=== PATIENT | female | born 1990 | race Caucasian/White ===

== ENCOUNTER 2016-12-16 13:23 | Emergency (ER) | payer BC, MEDICAID ==
--- NOTE | 2016-12-16 14:23 | EKG REPORT ---
SEVERITY:- ABNORMAL ECG - SINUS TACHYCARDIA PROBABLE LEFT ATRIAL ABNORMALITY INCOMPLETE RIGHT BUNDLE BRANCH BLOCK INFERIOR Q WAVES, PROBABLY NORMAL VARIATION : Confirmed by: Ramos Villegas 16-Dec-2016 14:22:34
[2016-12-16] MEDS ORDERED: LORAZEPAM INJ 2 MG/1 ML VIAL IV ONE ×2 (14:38→16:41)
--- NOTE | 2016-12-16 14:39 | ER Document Report ---
ED Medical Screen (RME) - General Time seen by provider: 14:30 Mode of Arrival: Ambulatory Information source: Patient TRAVEL OUTSIDE OF THE [place] IN LAST 30 DAYS: No <VALENTINO MATHEWS - Last Filed: 12/16/16 14:53> <TRESSA WOODS - Last Filed: 12/20/16 02:49> - General Chief Complaint: Shortness Of Breath Stated Complaint: RIGHT ARM PAIN,FAST PULSE,NAUSEA Notes: Patient is a 26-year-old female presenting to the emergency department for numbness and tingling to her right upper extremity and chest heaviness. Patient states that she had 2 days of tingling and numbness to her right arm. Patient ate lunch normally had work today, walked in and sat at her desk. Patient states she lifted her right arm to the mouth and had an intense substernal pain in her arm and chest. Patient still complains of some chest heaviness and tingling also in her fingers. Patient denies any history of blood clots. Patient is taking Chantix. Patient states her last normal menstrual period was in September and there is a chance that she could be . (VALENTINO MATHEWS) - Related Data Allergies/Adverse Reactions: No Known Allergies Allergy (Verified 12/16/16 13:29) Past Medical History Renal/ Medical History: Denies: Hx Peritoneal Dialysis Psychiatric Medical History: Reports: Hx Depression - Immunizations Hx Diphtheria, Pertussis, Tetanus Vaccination: Yes <VALENTINO MATHEWS - Last Filed: 12/16/16 14:53> Course <VALENTINO MATHEWS - Last Filed: 12/16/16 14:53> - Laboratory Result Diagrams: 12/16/16 15:08 12/16/16 15:08 <TRESSA WOODS - Last Filed: 12/20/16 02:49> - Re-evaluation Re-evalutation: 12/20/16 02:48 the patient presents with a more permanent chest wall pain. says it hurts when she moves. 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 she has no shortness of breath dyspnea on exertion chest pain or pressure no pain radiating to the back of nausea vomiting up down pain diary shows a change in appetite she found she did anxious about the chest wall pain she starts getting tingling in her arm in a headache blurred vision television stroke like symptoms and normal neurological examination. patient has negative cardiac workup no clinical concerns for cva and my are unstable angina. at this time. should a bonny scales chest wall pain valium close to three-day fall primary care physician and discuss reasons for you to return sooner 12/20/16 02:49 (TRESSA WOODS) - Vital Signs Vital signs: Temp Pulse Resp BP Pulse Ox 98.7 F 99 16 135/88 H 98 12/16/16 13:29 12/16/16 19:47 12/16/16 19:47 12/16/16 19:47 12/16/16 19:47 - EKG Interpretation by Me Additional EKG results interpreted by me: 12/16/16 14:39 EKG interpreted by myself to reveal sinus tachycardia 113 bpm with an incomplete right bundle branch block inferior Q waves no ST segment elevation ( TRESSA WOODS) Doctor's Discharge <VALENTINO MATHEWS - Last Filed: 12/16/16 14:53> <TRESSA WOODS - Last Filed: 12/20/16 02:49> - Discharge Clinical Impression: Anxiety, Arm paresthesia, right, Trapezius muscle spasm Dyspnea Qualifiers: Dyspnea type: unspecified Qualified Code(s): R06.00 - Dyspnea, unspecified Condition: Stable Disposition: HOME, SELF-CARE Instructions: Anxiety ([facility]), Benzodiazepines ([facility]), Dyspnea, Nonspecific ([facility]) Additional Instructions: Return immediately for any new or worsening symptoms Followup with your primary care provider, call tomorrow to make a followup appointment Follow up with development team lead for further evaluation Prescriptions: Diazepam [Valium 5 mg Tablet] 5 mg PO TID PRN #12 tablet PRN Reason: Ondansetron HCl [Zofran 4 mg Tablet] 1 - 2 tab PO Q6 PRN #15 tablet PRN Reason: Forms: Return to Work Referrals: RON GOMEZ MD [ACTIVE STAFF] - Follow up tomorrow LAKISHA ADAME NP [Primary Care Provider] - Follow up tomorrow Scribe Documentation - Scribe Written by Scribe:: Valentino Mathews 12/16/16 14:55 acting as scribe for :: Brock <VALENTINO MATHEWS - Last Filed: 12/16/16 14:53>
[2016-12-16 15:26] LABS: APPEARANCE,URINE CLEAR; BILIRUBIN,URINE NEGATIVE (NEGATIVE); GLUCOSE, URINE NEGATIVE (NEGATIVE); KETONES,URINE NEGATIVE (NEGATIVE); LEUKOCYTE ESTERASE,URINE NEGATIVE (NEGATIVE); NITRITE,URINE NEGATIVE (NEGATIVE); PROTEIN,URINE NEGATIVE (NEGATIVE); URINE SPECIFIC GRAVITY 1.005; UROBILINOGEN,URINE NEGATIVE mg/dL (<2.0)
[2016-12-16 15:31] LABS: ABSOLUTE EOSINOPHILS # (AUTO) 0.4 10^3/uL (0.0-0.6); ABSOLUTE LYMPHOCYTES (AUTO) 2.1 10^3/uL (0.5-4.7); ABSOLUTE MONOCYTES (AUTO) 0.8 10^3/uL (0.1-1.4); ABSOLUTE NEUT (AUTO) 4.6 10^3/uL (1.7-8.2); BASOPHILS % (AUTO) 0.6 % (0-2); EOSINOPHILS % (AUTO) 4.5 % (0-6); HEMATOCRIT 44.2 % (36.0-47.0); HGB HCT DIFFERENCE 0.8; MEAN CORPUSCULAR HEMOGLOBIN 31.2 pg (27.0-33.4); MEAN CORPUSCULAR VOLUME 92 fl (80-97); MONOCYTES % (AUTO) 10.2 % (3-13); RED BLOOD COUNT 4.82 10^6/uL (3.72-5.28); RED CELL DISTRIBUTION WIDTH 13.4 % (11.5-14.0); SEGMENTED NEUTROPHILS % (AUTO) 58.7 % (42-78); WHITE BLOOD COUNT 7.9 10^3/uL (4.0-10.5)
[2016-12-16 15:45] LABS: ANION GAP 15 (5-19); BLOOD UREA NITROGEN 10 mg/dL (7-20); CALCIUM 10.1 mg/dL (8.4-10.2); CARBON DIOXIDE 27 mmol/L (22-30); CHLORIDE 102 mmol/L (98-107); CREATININE RESULT 0.72 mg/dL (0.52-1.25); GLUCOSE 101 mg/dL (75-110); SODIUM 144.3 mmol/L (137-145)
[2016-12-16] MEDS ORDERED: ONDANSETRON HCL INJ/PF 4 MG/2 ML SDV IV ONE (16:36)
[2016-12-16] MEDS ORDERED: NORMAL SALINE 1000 ML 1,000 ML IV ONE (16:36)
[2016-12-16] MEDS ORDERED: DIAZEPAM 5 MG TABLET PO ONE (16:53)
--- NOTE | 2016-12-16 18:17 | ER Document Report ---
ED Respiratory Problem - General Chief Complaint: Shortness Of Breath Stated Complaint: RIGHT ARM PAIN,FAST PULSE,NAUSEA Mode of Arrival: Ambulatory Information source: Patient Notes: Patient presents complaining of right arm pain with tingling to her fingers and shortness of breath for the past 2 days. Patient complains of a pressure in her chest with some nausea. Patient does report some mild cold symptoms. No vomiting. Patient states she has a family history of heart attack that she might be having a heart attack as well. TRAVEL OUTSIDE OF THE [place] IN LAST 30 DAYS: No - HPI Patient complains to provider of: Short of breath Onset: Yesterday Duration: Continuous Pain Level: 4 Context: Smoker. denies: Hx asthma, Recent cardiac event, Recent immobilization , Recent surgery Cough: Nonproductive Associated symptoms: Anxiety, Short of breath, Tingling hands - Right hand. denies: Bloody cough, Fever Similar symptoms previously: No Recently seen / treated by doctor: No - Related Data Allergies/Adverse Reactions: No Known Allergies Allergy (Verified 12/16/16 13:29) Past Medical History - General Information source: Patient - Social History Smoking Status: Current Every Day Smoker Chew tobacco use (# tins/day): No Frequency of alcohol use: None Drug Abuse: None Occupation: [employer] Lives with: Family Family History: Reviewed & Not Pertinent Patient has suicidal ideation: No Patient has homicidal ideation: No Neurological Medical History: Reports: Other - Headache Renal/ Medical History: Denies: Hx Peritoneal Dialysis Psychiatric Medical History: Reports: Hx Depression Surgical Hx: Negative - Immunizations Hx Diphtheria, Pertussis, Tetanus Vaccination: Yes Review of Systems - Review of Systems Constitutional: Recent illness - Upper respiratory symptoms. denies: Fever EENT: No symptoms reported Cardiovascular: Palpitations, Orthopnea. denies: Chest pain Respiratory: Short of breath Gastrointestinal: Nausea. denies: Abdominal pain, Vomiting Genitourinary: No symptoms reported Female Genitourinary: No symptoms reported Musculoskeletal: No symptoms reported. denies: Back pain, Neck pain Skin: No symptoms reported Hematologic/Lymphatic: No symptoms reported Neurological/Psychological: No symptoms reported Physical Exam - Vital signs Vitals: Temp Pulse Resp BP Pulse Ox 98.7 F 111 H 18 156/94 H 100 12/16/16 13:29 12/16/16 13:29 12/16/16 13:29 12/16/16 13:29 12/16/16 13:29 - General General appearance: Alert, Anxious In distress: None - HEENT Head: Normocephalic, Atraumatic Eyes: Normal Conjunctiva: Normal Nasal: Normal Mouth/Lips: Normal Mucous membranes: Normal Pharynx: Normal Neck: Normal, Supple. No: Lymphadenopathy - Respiratory Respiratory status: No respiratory distress Chest status: Nontender Breath sounds: Normal Chest palpation: Normal - Cardiovascular Rhythm: Tachycardia Heart sounds: S1 appreciated, S2 appreciated Murmur: No Pulses: Normal: Radial - Abdominal Inspection: Normal Distension: No distension Bowel sounds: Normal Tenderness: Nontender Organomegaly: No organomegaly - Back Back: Tender - Right trapezius muscle spasm with tenderness at right occipital condyle - Extremities General upper extremity: Normal inspection, Tender - Right upper extremity, Normal color, Normal ROM, Normal strength, Normal temperature. No: Edema General lower extremity: Normal inspection, Normal ROM - Neurological Neuro grossly intact: Yes Cognition: Normal Jay Coma Scale Eye Opening: Spontaneous Jay Coma Scale Verbal: Oriented Jay Coma Scale Motor: Obeys Commands Jay Coma Scale Total: 15 - Psychological Associated symptoms: Anxious, Tearful - Skin Skin Temperature: Warm Skin Moisture: Dry Skin Color: Normal Course - Vital Signs Vital signs: Temp Pulse Resp BP Pulse Ox 98.7 F 111 H 18 156/94 H 100 12/16/16 13:29 12/16/16 13:29 12/16/16 13:29 12/16/16 13:29 12/16/16 13:29 - Laboratory Result Diagrams: 12/16/16 15:08 12/16/16 15:08 Laboratory results interpreted by me: Labs- Entire Visit 12/16/16 12/16/16 12/16/16 14:51 15:08 15:08 WBC 7.9 RBC 4.82 Hgb 15.0 Hct 44.2 MCV 92 MCH 31.2 MCHC 34.0 RDW 13.4 Plt Count 288 Seg Neutrophils % 58.7 Lymphocytes % 26.0 Monocytes % 10.2 Eosinophils % 4.5 Basophils % 0.6 Absolute Neutrophils 4.6 Absolute Lymphocytes 2.1 Absolute Monocytes 0.8 Absolute Eosinophils 0.4 Absolute Basophils 0.0 Sodium 144.3 Potassium 4.0 Chloride 102 Carbon Dioxide 27 Anion Gap 15 BUN 10 Creatinine 0.72 Est GFR ( Amer) > 60 Est GFR (Non-Af Amer) > 60 Glucose 101 Calcium 10.1 Troponin I TSH Urine Color YELLOW Urine Appearance CLEAR Urine pH 9.0 Ur Specific [place] 1.005 Urine Protein NEGATIVE Urine Glucose (UA) NEGATIVE Urine Ketones NEGATIVE Urine Blood NEGATIVE Urine Nitrite NEGATIVE Urine Bilirubin NEGATIVE Urine Urobilinogen NEGATIVE Ur Leukocyte Esterase NEGATIVE Urine WBC (Auto) 1 Urine RBC (Auto) 2 Squamous Epi Cells Auto 1 Urine Mucus (Auto) RARE Urine Ascorbic Acid NEGATIVE 12/16/16 12/16/16 15:08 15:08 WBC RBC Hgb Hct MCV MCH MCHC RDW Plt Count Seg Neutrophils % Lymphocytes % Monocytes % Eosinophils % Basophils % Absolute Neutrophils Absolute Lymphocytes Absolute Monocytes Absolute Eosinophils Absolute Basophils Sodium Potassium Chloride Carbon Dioxide Anion Gap BUN Creatinine Est GFR ( Amer) Est GFR (Non-Af Amer) Glucose Calcium Troponin I < 0.012 TSH 1.57 Urine Color Urine Appearance Urine pH Ur Specific [place] Urine Protein Urine Glucose (UA) Urine Ketones Urine Blood Urine Nitrite Urine Bilirubin Urine Urobilinogen Ur Leukocyte Esterase Urine WBC (Auto) Urine RBC (Auto) Squamous Epi Cells Auto Urine Mucus (Auto) Urine Ascorbic Acid 12/16/16 19:39 - Diagnostic Test Radiology reviewed: Reports reviewed Discharge - Discharge Clinical Impression: Anxiety, Arm paresthesia, right, Trapezius muscle spasm Dyspnea Qualifiers: Dyspnea type: unspecified Qualified Code(s): R06.00 - Dyspnea, unspecified Condition: Stable Disposition: HOME, SELF-CARE Instructions: Dyspnea, Nonspecific ([facility]), Anxiety ([facility]), Benzodiazepines ([facility]) Additional Instructions: Return immediately for any new or worsening symptoms Followup with your primary care provider, call tomorrow to make a followup appointment Follow up with manager it training for further evaluation Prescriptions: Diazepam [Valium 5 mg Tablet] 5 mg PO TID PRN #12 tablet PRN Reason: Ondansetron HCl [Zofran 4 mg Tablet] 1 - 2 tab PO Q6 PRN #15 tablet PRN Reason: Forms: Return to Work Referrals: LAKISHA ADAME NP [Primary Care Provider] - Follow up tomorrow RON GOMEZ MD [ACTIVE STAFF] - Follow up tomorrow
[2016-12-16 19:54] VITALS: BP 135/88
--- NOTE | 2016-12-17 09:39 | EKG REPORT ---
SEVERITY:- ABNORMAL ECG - SINUS RHYTHM NONSPECIFIC INTRAVENTRICULAR CONDUCTION DELAY : Confirmed by: Ramos Villegas 17-Dec-2016 09:38:43
== END 2016-12-16 19:47 | disposition home or self-care (01) ==
LOC: ER 13:23
DX: R06.00 Dyspnea, unspecified (principal); F41.9 Anxiety disorder, unspecified; R20.0 Anesthesia of skin; M62.838 Other muscle spasm; R06.02 Shortness of breath; M79.601 Pain in right arm; R11.0 Nausea; R00.2 Palpitations; F17.200 Nicotine dependence, unspecified, uncomplicated
CPT/HCPCS: 93005; 99285; 96361; 96374; 96375; 36415; 84443; 85025; 80048; 81001; 84484; 71275; 93010; J2060; J2405; J7030

== ENCOUNTER 2017-06-20 21:49 | Emergency (ER) | payer BC ==
[2017-06-20 22:15] VITALS: BP 129/83
== END 2017-06-21 01:05 | disposition left against medical advice (07) ==
LOC: ER 21:49
DX: Z53.21 Procedure and treatment not carried out due to patient leaving prior to being seen by health care provider (principal)

== ENCOUNTER 2017-08-02 11:30 | Emergency (ER) | payer BC ==
[2017-08-02] MEDS ORDERED: ONDANSETRON 4 MG TAB.RAPDIS PO ONE (11:56)
--- NOTE | 2017-08-02 11:56 | ER Document Report ---
ED Medical Screen (RME) - General Chief Complaint: Abdominal Pain Stated Complaint: ABDOMINAL PAIN Time Seen by Provider: 08/02/17 11:49 Notes: 27-year-old female patient reports onset 9 PM last night of "felt like my body is septic or toxic". Had dry heaves this morning and black bowel movements. States "feels like my body is going to shut down". Currently being treated for "an ulcer on the side of my pancreas". That ulcer is being treated with Carafate and Prevacid. She denies taking anything like Pepto-Bismol that could change the character of her bowel movements. I have greeted and performed a rapid initial assessment of this patient. A comprehensive ED assessment and evaluation of the patient, analysis of test results and completion of the medical decision making process will be conducted by additional ED providers. TRAVEL OUTSIDE OF THE [place] IN LAST 30 DAYS: No - Related Data Allergies/Adverse Reactions: No Known Allergies Allergy (Verified 08/02/17 11:49) Past Medical History - Social History Chew tobacco use (# tins/day): No Frequency of alcohol use: None Drug Abuse: None Renal/ Medical History: Denies: Hx Peritoneal Dialysis Psychiatric Medical History: Reports: Hx Depression - Immunizations Hx Diphtheria, Pertussis, Tetanus Vaccination: Yes Physical Exam - Vital signs Vitals: Temp Pulse Resp BP Pulse Ox 98.6 F 95 16 132/89 H 100 08/02/17 11:42 08/02/17 11:42 08/02/17 11:42 08/02/17 11:42 08/02/17 11:42 Course - Vital Signs Vital signs: Temp Pulse Resp BP Pulse Ox 98.6 F 95 16 132/89 H 100 08/02/17 11:42 08/02/17 11:42 08/02/17 11:42 08/02/17 11:42 08/02/17 11:42
[2017-08-02 12:23] LABS: ABSOLUTE BASOPHILS # (AUTO) 0.1 10^3/uL (0.0-0.2); ABSOLUTE EOSINOPHILS # (AUTO) 0.5 10^3/uL (0.0-0.6); ABSOLUTE LYMPHOCYTES (AUTO) 2.1 10^3/uL (0.5-4.7); ABSOLUTE MONOCYTES (AUTO) 0.5 10^3/uL (0.1-1.4); ABSOLUTE NEUT (AUTO) 3.9 10^3/uL (1.7-8.2); BASOPHILS % (AUTO) 0.9 % (0-2); EOSINOPHILS % (AUTO) 6.5 % (0-6); HEMATOCRIT 43.6 % (36.0-47.0); HEMOGLOBIN 14.8 g/dL (12.0-15.5); HGB HCT DIFFERENCE 0.8; LYMPHOCYTES % (AUTO) 29.2 % (13-45); MEAN CORPUSCULAR HEMOGLOBIN 30.1 pg (27.0-33.4); MEAN CORPUSCULAR HGB CONC 33.9 g/dL (32.0-36.0); MEAN CORPUSCULAR VOLUME 89 fl (80-97); MONOCYTES % (AUTO) 7.7 % (3-13); RED BLOOD COUNT 4.91 10^6/uL (3.72-5.28); RED CELL DISTRIBUTION WIDTH 13.2 % (11.5-14.0); SEGMENTED NEUTROPHILS % (AUTO) 55.7 % (42-78)
[2017-08-02 12:26] LABS: APPEARANCE,URINE CLEAR; BILIRUBIN,URINE NEGATIVE (NEGATIVE); GLUCOSE, URINE NEGATIVE (NEGATIVE); KETONES,URINE NEGATIVE (NEGATIVE); LEUKOCYTE ESTERASE,URINE NEGATIVE (NEGATIVE); NITRITE,URINE NEGATIVE (NEGATIVE); PROTEIN,URINE NEGATIVE (NEGATIVE); URINE SPECIFIC GRAVITY 1.003; UROBILINOGEN,URINE NEGATIVE mg/dL (<2.0)
[2017-08-02 12:50] LABS: ALANINE AMINOTRANSFERASE 26 U/L (9-52); ALBUMIN 5.1 g/dL (3.5-5.0); ALKALINE PHOSPHATASE 48 U/L (38-126); AMYLASE 49 U/L (30-110); ANION GAP 13 (5-19); ASPARTATE AMINO TRANSFERASE 21 U/L (14-36); BILIRUBIN,DIRECT 0.4 mg/dL (0.0-0.4); BILIRUBIN,TOTAL 0.4 mg/dL (0.2-1.3); BLOOD UREA NITROGEN 10 mg/dL (7-20); CARBON DIOXIDE 29 mmol/L (22-30); CHLORIDE 101 mmol/L (98-107); CREATININE RESULT 0.79 mg/dL (0.52-1.25); GLUCOSE 93 mg/dL (75-110); LIPASE 144.2 U/L (23-300); MAGNESIUM 1.9 mg/dL (1.6-2.3); POTASSIUM 4.4 mmol/L (3.6-5.0); TOTAL PROTEIN 8.9 g/dL (6.3-8.2)
--- NOTE | 2017-08-02 15:51 | ER Document Report ---
ED GI/ - General Chief Complaint: Abdominal Pain Stated Complaint: ABDOMINAL PAIN Time Seen by Provider: 08/02/17 11:49 Notes: Patient is a 27-year-old female with a past medical history significant for gastric ulcer that she is currently taking Carafate and Prevacid for and following with Dr. Arreola, a surgeon in [place] for care of her condition. She states that she presents emergency department due to the past 2 days of malaise as well as epigastric discomfort not relieved with her home medications. She denies any fever, chills, vomiting, diarrhea. She admits to recent constipation relieved with a one episode of dark bowel movement earlier today. Past medical history significant for history of pancreatitis, ovarian cysts TRAVEL OUTSIDE OF THE [place] 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 Psychiatric Medical History: Reports: Hx Depression - Immunizations Hx Diphtheria, Pertussis, Tetanus Vaccination: Yes Review of Systems - Review of Systems Constitutional: No symptoms reported Cardiovascular: No symptoms reported Respiratory: No symptoms reported Gastrointestinal: See HPI Genitourinary: No symptoms reported Female Genitourinary: No symptoms reported -: Yes All other systems reviewed and negative Physical Exam - Vital signs Vitals: Temp Pulse Resp BP Pulse Ox 98.6 F 95 16 132/89 H 100 08/02/17 11:42 08/02/17 11:42 08/02/17 11:42 08/02/17 11:42 08/02/17 11:42 - Notes Notes: PHYSICAL EXAM GENERAL: Alert, interacts well. NECK: Full range of motion. Supple. Trachea midline. LUNGS: Clear to auscultation bilaterally, no wheezes, rales, or rhonchi. No respiratory distress. HEART: Regular rate and rhythm. No murmurs, gallops, or rubs. ABDOMEN: Soft, nondistended, moderate epigastric tenderness. No guarding, rebound, or rigidity.. Bowel sounds present in all 4 quadrants. EXTREMITIES: Moves all 4 extremities spontaneously. No edema, radial and dorsalis pedis pulses 2/4 bilaterally. No cyanosis. NEUROLOGICAL: Alert and oriented x4. Normal speech. PSYCH: Normal affect, normal mood. SKIN: Warm, dry, normal turgor. No rashes or lesions noted. Course - Re-evaluation Re-evalutation: 08/02/17 19:37 Patient is a 27-year-old female who is hemodynamically stable, no acute distress and afebrile. CBC stable without any evidence of leukocytosis or anemia. No evidence of electrolyte abnormalities, elevation in liver or pancreatic function. Urinalysis without evidence of dehydration, UTI. CT the abdomen and pelvis does not show any evidence or concern for perforated viscus at this time. Patient is tolerating p.o. and has had significant improvement after GI cocktail. Occult stool was also negative. Reviewed results with the patient and discussed pursuing with outpatient treatment with clear liquid diet , continuing her home medications with the addition of Magic mouthwash for pain relief and Zofran, following up with Dr. Sims this week. Patient expresses understanding and agrees with plan. Discussed strict return precautions with her and her - Vital Signs Vital signs: Temp Pulse Resp BP Pulse Ox 98.0 F 84 18 118/80 98 08/02/17 20:00 08/02/17 21:17 08/02/17 21:17 08/02/17 21:17 08/02/17 21:17 - Laboratory Result Diagrams: 08/02/17 12:04 08/02/17 12:04 Laboratory results interpreted by me: 08/02/17 08/02/17 12:04 12:04 Eosinophils % 6.5 H Total Protein 8.9 H Albumin 5.1 H - Diagnostic Test Radiology reviewed: Image reviewed, Reports reviewed Discharge - Discharge Clinical Impression: Epigastric abdominal pain Condition: Good Disposition: HOME, SELF-CARE Instructions: Ulcer ([facility]) Additional Instructions: -Your presentation today is consistent with irritation from her gastric ulcer. There is no evidence of a perforation or hole intra-abdominal cavity secondary to this on her imaging today. Please take the medications as directed and follow-up with your surgeon tomorrow. -Please return to the emergency department with persistent vomiting, vomiting that looks like coffee grounds, continuation of dark tarry stools that are frequent. Prescriptions: Nystatin/Dexameth/Diphen [Magic Mouthwash ([facility] Formula) Susp] 5 ml PO QID #120 ml Ondansetron HCl [Zofran 4 mg Tablet] 1 - 2 tab PO Q4H PRN #10 tablet PRN Reason:
[2017-08-02] MEDS ORDERED: PANTOPRAZOLE SODIUM 40 MG VIAL IV ONE (16:53)
[2017-08-02] MEDS ORDERED: NORMAL SALINE 1000 ML 1,000 ML IV ONE (16:53)
[2017-08-02] MEDS ORDERED: ONDANSETRON HCL INJ/PF 4 MG/2 ML SDV IV ONE (17:47)
[2017-08-02] MEDS ORDERED: MORPHINE SULFATE 10 MG/ML INJ IV ONE (17:48)
--- NOTE | 2017-08-02 19:09 | RADIOLOGY REPORT (SQ) ---
EXAM DESCRIPTION: CT ABD/PELVIS WITH IV ORAL COMPLETED DATE/TIME: 08/02/2017 6:49 pm REASON FOR STUDY: epigastric abdominal pain, h/o peptic ulcer COMPARISON: 11/15/2014. TECHNIQUE: CT scan of the abdomen and pelvis performed with intravenous and oral contrast using cheri ольга scanning technique with dynamic intravenous contrast injection. Images reviewed with lung, soft t issue, and bone windows. Reconstructed coronal and sagittal MPR images reviewed. Delayed images for e valuation of the urinary system also acquired. All images stored on PACS. All CT scanners at this facility use dose modulation, iterative reconstruction, and/or weight based d osing when appropriate to reduce radiation dose to as low as reasonably achievable (ALARA). [facility]: Dose Right [facility]: CareDose [facility]: Dose Right [facility]: Teradose 4D [facility]: Network18 CONTRAST TYPE AND DOSE: contrast/concentration: Isovue 370.00 mg/ml; Total Contrast Delivered: 67.0 ml; Total Saline Delivered: 40.1 ml RENAL FUNCTION: BUN 10 creatinine 0.79. RADIATION DOSE: CT Rad equipment meets quality standard of care and radiation dose reduction techniq ues were employed. CTDIvol: 5.6 - 7.0 mGy. DLP: 594 mGy-cm.. LIMITATIONS: None. FINDINGS: LOWER CHEST: No significant findings. No nodules or infiltrates. LIVER: Normal size. No masses. No dilated ducts. SPLEEN: Normal size. No focal lesions. PANCREAS: No masses. No significant calcifications. No adjacent inflammation or peripancreatic fluid collections. Pancreatic duct not dilated. GALLBLADDER: No identified stones by CT criteria. No inflammatory changes to suggest cholecystitis. ADRENAL GLANDS: No significant masses or asymmetry. RIGHT KIDNEY AND URETER: No solid masses. No significant calcification. No hydronephrosis or hydroure ter. LEFT KIDNEY AND URETER: No solid masses. No significant calcification. No hydronephrosis or hydrouret er. AORTA AND VESSELS: No aneurysm. No dissection. Renal arteries, SMA, celiac without stenosis. RETROPERITONEUM: No retroperitoneal adenopathy, hemorrhage or masses. BOWEL AND PERITONEAL CAVITY: No obstruction. No visualized masses. No free fluid. No inflammatory ch anges or thickening of bowel wall. APPENDIX: Normal. PELVIS: No significant masses. Bilateral ovarian cysts. Normal bladder. No free fluid. ABDOMINAL WALL: No masses. No hernias. BONES: No significant or acute findings. OTHER: No other significant finding. IMPRESSION: NO SIGNIFICANT OR ACUTE FINDINGS IN THE ABDOMEN OR PELVIS. TECHNICAL DOCUMENTATION: JOB ID: [id number] Quality ID # [id number]: Final reports with documentation of one or more dose reduction techniques (e.g., Au tomated exposure control, adjustment of the mA and/or kV according to patient size, use of iterative reconstruction technique) 2010 [employer]- All Rights Reserved
[2017-08-02] MEDS ORDERED: LIDOCAINE 2% VISCOUS SOLN 20 ML UDCUP PO ONE (19:37)
[2017-08-02] MEDS ORDERED: FAMOTIDINE 20 MG TABLET PO ONE (19:37)
[2017-08-02] MEDS ORDERED: MAG HYDROX/AL HYDROX/SIMETH SUSP 30 ML UDCUP PO ONE (19:37)
[2017-08-02] MEDS ORDERED: METOCLOPRAMIDE HCL ORAL SOLN 10 MG/10 ML UDCUP PO ONE (19:37)
[2017-08-02 21:18] VITALS: BP 118/80
== END 2017-08-02 21:18 | disposition home or self-care (01) ==
LOC: ER 11:30
DX: K25.9 Gastric ulcer, unspecified as acute or chronic, without hemorrhage or perforation (principal); R10.816 Epigastric abdominal tenderness; R53.81 Other malaise; Z87.19 Personal history of other diseases of the digestive system; Z87.891 Personal history of nicotine dependence; Z87.42 Personal history of other diseases of the female genital tract
CPT/HCPCS: 99284; 96361; 96374; 36415; 82150; 83690; 83735; 84703; 85025; 82272; 80053; 81001; 74177; S0119; J3490; S0164; J7030

== ENCOUNTER 2018-01-07 19:58 | Emergency (ER) | payer BC ==
[2018-01-07] MEDS ORDERED: HYDROMORPHONE HCL INJ/PF 2 MG/ML AMPULE IV ONE (20:54)
[2018-01-07 20:56] LABS: ABSOLUTE BASOPHILS # (AUTO) 0.1 10^3/uL (0.0-0.2); ABSOLUTE EOSINOPHILS # (AUTO) 0.7 10^3/uL (0.0-0.6); ABSOLUTE MONOCYTES (AUTO) 1.1 10^3/uL (0.1-1.4); ABSOLUTE NEUT (AUTO) 6.7 10^3/uL (1.7-8.2); BASOPHILS % (AUTO) 0.8 % (0-2); EOSINOPHILS % (AUTO) 6.4 % (0-6); HEMOGLOBIN 14.5 g/dL (12.0-15.5); MEAN CORPUSCULAR HEMOGLOBIN 30.1 pg (27.0-33.4); MEAN CORPUSCULAR HGB CONC 33.8 g/dL (32.0-36.0); MEAN CORPUSCULAR VOLUME 89 fl (80-97); MONOCYTES % (AUTO) 9.1 % (3-13); PLATELET COUNT 335 10^3/uL (150-450); RED BLOOD COUNT 4.83 10^6/uL (3.72-5.28); RED CELL DISTRIBUTION WIDTH 13.1 % (11.5-14.0); SEGMENTED NEUTROPHILS % (AUTO) 57.7 % (42-78); TOTAL CELLS COUNTED % (AUTO) 100 %; WHITE BLOOD COUNT 11.7 10^3/uL (4.0-10.5)
[2018-01-07 21:18] LABS: ALANINE AMINOTRANSFERASE 23 U/L (9-52); ALBUMIN 4.8 g/dL (3.5-5.0); ALKALINE PHOSPHATASE 50 U/L (38-126); ANION GAP 16 (5-19); ASPARTATE AMINO TRANSFERASE 19 U/L (14-36); BILIRUBIN,DIRECT 0.2 mg/dL (0.0-0.4); BILIRUBIN,TOTAL 0.2 mg/dL (0.2-1.3); BLOOD UREA NITROGEN 13 mg/dL (7-20); CALCIUM 10.2 mg/dL (8.4-10.2); CARBON DIOXIDE 27 mmol/L (22-30); CHLORIDE 102 mmol/L (98-107); GLUCOSE 100 mg/dL (75-110); LIPASE 94.6 U/L (23-300); POTASSIUM 3.9 mmol/L (3.6-5.0); SODIUM 145.4 mmol/L (137-145); TOTAL PROTEIN 8.1 g/dL (6.3-8.2)
[2018-01-07 21:25] LABS: APPEARANCE,URINE CLEAR; BILIRUBIN,URINE NEGATIVE (NEGATIVE); COLOR,URINE STRAW; GLUCOSE, URINE NEGATIVE (NEGATIVE); KETONES,URINE NEGATIVE (NEGATIVE); LEUKOCYTE ESTERASE,URINE NEGATIVE (NEGATIVE); NITRITE,URINE NEGATIVE (NEGATIVE); PROTEIN,URINE NEGATIVE (NEGATIVE); URINE SPECIFIC GRAVITY 1.004; UROBILINOGEN,URINE NEGATIVE mg/dL (<2.0)
[2018-01-07] MEDS ORDERED: ONDANSETRON HCL INJ/PF 4 MG/2 ML SDV IV ONE (21:28)
--- NOTE | 2018-01-07 22:15 | RADIOLOGY REPORT (SQ) ---
EXAM DESCRIPTION: CT ABD/PELVIS WITH IV ONLY COMPLETED DATE/TIME: 01/07/2018 9:59 pm REASON FOR STUDY: abd pain, hx pancreatitis, ascitis COMPARISON: 08/02/2017 TECHNIQUE: CT scan of the abdomen and pelvis performed using helical scanning technique with dynamic intravenous contrast injection. No oral contrast. Images reviewed with lung, soft tissue, and bone windows. Reconstructed coronal and sagittal MPR images reviewed. Delayed images for evaluation of the urinary system also acquired. All images stored on PACS. All CT scanners at this facility use dose modulation, iterative reconstruction, and/or weight based d osing when appropriate to reduce radiation dose to as low as reasonably achievable (ALARA). [facility]: Dose Right [facility]: CareDose [facility]: Dose Right [facility]: Teradose 4D [facility]: 3PointData CONTRAST TYPE AND DOSE: contrast/concentration: Isovue 370.00 mg/ml; Total Contrast Delivered: 68.0 ml; Total Saline Delivered: 65.0 ml RENAL FUNCTION: BUN 13; creatinine 0.80 RADIATION DOSE: CT Rad equipment meets quality standard of care and radiation dose reduction techniq ues were employed. CTDIvol: 6.2 - 7.8 mGy. DLP: 711 mGy-cm.. LIMITATIONS: None. FINDINGS: LOWER CHEST: No significant findings. No nodules or infiltrates. LIVER: Normal size. No masses. No dilated ducts. SPLEEN: Normal size. No focal lesions. PANCREAS: No masses. No significant calcifications. No adjacent inflammation or peripancreatic fluid collections. Pancreatic duct not dilated. GALLBLADDER: No identified stones by CT criteria. No inflammatory changes to suggest cholecystitis. ADRENAL GLANDS: No significant masses or asymmetry. RIGHT KIDNEY AND URETER: No solid masses. No significant calcifications. No hydronephrosis or hyd roureter. LEFT KIDNEY AND URETER: No solid masses. No significant calcifications. No hydronephrosis or hydr oureter. AORTA AND VESSELS: No aneurysm. No dissection. Renal arteries, SMA, celiac without stenosis. RETROPERITONEUM: No retroperitoneal adenopathy, hemorrhage or masses. BOWEL AND PERITONEAL CAVITY: No masses or inflammatory changes. No free fluid or peritoneal masses. APPENDIX: Normal. PELVIS: A serpiginous fluid collection seen deep within the pelvis is favored to represent hydrosalpi nx as this is retrospectively demonstrated on comparison CT imaging, albeit to a lesser degree. Herzog tracy, a loop of bowel may appear similarly. No inflammatory changes. Physiologic free fluid within t he pelvic cul-de-sac. No pneumoperitoneum. ABDOMINAL WALL: No masses. No hernias. BONES: No significant or acute findings. OTHER: No other significant finding. IMPRESSION: NO SIGNIFICANT OR ACUTE FINDING IN THE ABDOMEN OR PELVIS ON CT SCAN WITH IV CONTRAST. A N INCIDENTALLY NOTED SERPIGINOUS FLUID COLLECTION SEEN WITHIN THE PELVIS IS FAVORED TO REPRESENT HYDR OSALPINX, ALTHOUGH A LOOP OF BOWEL MAY APPEAR SIMILARLY. TECHNICAL DOCUMENTATION: JOB ID: [id number] Quality ID # [id number]: Final reports with documentation of one or more dose reduction techniques (e.g., Au tomated exposure control, adjustment of the mA and/or kV according to patient size, use of iterative reconstruction technique) 2010 [employer]- All Rights Reserved Reading location - IP/workstation name: [email or web address]
--- NOTE | 2018-01-07 22:28 | ER Document Report ---
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 denies any fevers or chills TRAVEL OUTSIDE OF THE [place] IN LAST 30 DAYS: No - HPI Onset: Last week Onset/Duration: Waxing and waning, Worse Quality of pain: Sharp Severity: Mild Pain Level: 2 Associated symptoms: Nausea, Vomiting, Other Exacerbated by: Denies Relieved by: Denies Similar symptoms previously: Yes Recently seen / treated by doctor: No - Related Data Allergies/Adverse Reactions: No Known Allergies Allergy (Verified 01/07/18 19:58) Past Medical History - Social History Smoking Status: Never Smoker Cigarette use (# per day): No Chew tobacco use (# tins/day): No Smoking Education Provided: No Family History: Reviewed & Not Pertinent Renal/ Medical History: Denies: Hx Peritoneal Dialysis GI Medical History: 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 Denies recent illness. EENT: Denies eye, ear, throat, or mouth pain or symptoms. Denies nasal or sinus congestion or discharge. Denies throat, tongue, or mouth swelling or difficulty swallowing. CARDIOVASCULAR: Denies chest pain. Denies palpitations or racing or irregular heart beat. Denies ankle edema. RESPIRATORY: Denies cough, cold, or chest congestion. Denies shortness of breath, difficulty breathing, or wheezing. GASTROINTESTINAL: admits to pelvic pain GENITOURINARY: Denies difficulty urinating, painful urination, burning, frequency, blood in urine, or discharge. FEMALE GENITOURINARY: admits to pelvic pain, pain with intercourse MUSCULOSKELETAL: Denies back or neck pain or stiffness. Denies joint pain or swelling. SKIN: Denies rash, lesions or sores. HEMATOLOGIC : Denies easy bruising or bleeding. LYMPHATIC: Denies swollen, enlarged glands. NEUROLOGICAL: Denies confusion or altered mental status. Denies passing out or loss of consciousness. Denies dizziness or lightheadedness. Denies headache. Denies weakness or paralysis or loss of use of either side. Denies problems with gait or speech. Denies sensory loss, numbness, or tingling. Denies seizures. PSYCHIATRIC: Denies anxiety or stress. Denies depression, suicidal ideation, or homicidal ideation. ALL OTHER SYSTEMS REVIEWED AND NEGATIVE. PHYSICAL EXAMINATION: GENERAL: Well-appearing, well-nourished and in no acute distress. HEAD: Atraumatic, normocephalic. EYES: Pupils equal round and reactive to light, extraocular movements intact, conjunctiva are normal. ENT: Nares patent, oropharynx clear without exudates. Moist mucous membranes. NECK: Normal range of motion, supple without lymphadenopathy LUNGS: Breath sounds clear to auscultation bilaterally and equal. No wheezes rales or rhonchi. HEART: Regular rate and rhythm without murmurs ABDOMEN: Soft, nontender, nondistended abdomen. No guarding, no rebound. No masses appreciated. Female : deferred by patient Musculoskeletal: Normal range of motion, no pitting or edema. No cyanosis. NEUROLOGICAL: Cranial nerves grossly intact. Normal speech, normal gait. Normal sensory, motor exams PSYCH: Normal mood, normal affect. SKIN: Warm, Dry, normal turgor, no rashes or lesions noted. Dictation was performed using [employer] voice recognition software Physical Exam - Vital signs Vitals: Temp Pulse Resp BP Pulse Ox 98.7 F 73 16 127/82 H 100 01/07/18 20:07 01/07/18 20:07 01/07/18 20:07 01/07/18 20:07 01/07/18 20:07 Course - Re-evaluation Re-evalutation: 01/07/18 22:39 Patient is currently pain-free, she notes symptoms improved significantly, I did speak to her regarding my concerns of a hydrosalpinx, I did also speak with Dr. Monroe who is on-call for DRESS FITTER she requests follow-up in the office notes that no intervention is necessary as the patient is otherwise stable patient has no concerns for an STD but after discussing this with her she notes that she already made an DRESS FITTER appointment for but she was having some abnormal discharge and pain with intercourse 01/07/18 22:54 After performing a Medical Screening Examination, I estimate there is LOW risk for ACUTE APPENDICITIS, BOWEL OBSTRUCTION, ACUTE CHOLECYSTITIS, PERFORATED DIVERTICULITIS, INCARCERATED HERNIA, PANCREATITIS, PELVIC INFLAMMATORY DISEASE, PERFORATED ULCER, ECTOPIC , or TUBO-OVARIAN ABSCESS, thus I consider the discharge disposition reasonable. Also, there is no evidence or peritonitis , sepsis, or toxicity. I have reevaluated this patient multiple times and no significant life threatening changes are noted. The patient and I have discussed the diagnosis and risks, and we agree with discharging home with close follow-up with the understanding that symptoms and presentations can change. We also discussed returning to the Emergency Department immediately if new or worsening symptoms occur. We have discussed the symptoms which are most concerning (e.g., bloody stool, fever, changing or worsening pain, vomiting) that necessitate immediate return. - Vital Signs Vital signs: Temp Pulse Resp BP Pulse Ox 98.7 F 73 16 127/82 H 100 01/07/18 20:07 01/07/18 20:07 01/07/18 20:07 01/07/18 20:07 01/07/18 20:07 - Laboratory Result Diagrams: 01/07/18 20:35 01/07/18 20:35 Laboratory results interpreted by me: 01/07/18 01/07/18 01/07/18 20:35 20:35 20:35 WBC 11.7 H Eosinophils % 6.4 H Absolute Eosinophils 0.7 H Sodium 145.4 H Urine Blood SMALL H - Diagnostic Test Radiology reviewed: Image reviewed - ct abd pelvis with iv contrast concerning for hydrosalpinx, Reports reviewed Discharge - Discharge Clinical Impression: Hydrosalpinx, Pelvic pain Condition: Stable Disposition: HOME, SELF-CARE Instructions: Pelvic Pain ([facility]) Prescriptions: Metoclopramide HCl [Reglan 10 mg Tablet] 1 - 2 tab PO Q6 #15 tablet Oxycodone HCl/Acetaminophen [Percocet 5-325 mg Tablet] 1 - 2 tab PO Q4H PRN #15 tablet PRN Reason: Referrals: JOSE ARMANDO MONROE MD [ACTIVE STAFF] - Follow up in 3-5 days
[2018-01-07 23:42] VITALS: BP 132/73
[2018-01-08 00:44] LABS: CHLAM PCR NOT DETECTED (NOT DETECT); GON PCR NOT DETECTED (NOT DETECT)
== END 2018-01-07 23:53 | disposition home or self-care (01) ==
LOC: ER 19:58
DX: N70.11 Chronic salpingitis (principal); K21.9 Gastro-esophageal reflux disease without esophagitis; R10.2 Pelvic and perineal pain; R11.2 Nausea with vomiting, unspecified; Z87.19 Personal history of other diseases of the digestive system; Z87.11 Personal history of peptic ulcer disease
CPT/HCPCS: 99284; 96374; 96375; 36415; 84702; 83690; 85025; 81025; 80053; 81001; 87491; 87591; 74177; J1170; J2405

== ENCOUNTER 2018-01-12 05:18 | Day surgery (SDC) | payer BC ==
[2018-01-12 06:42] LABS: HEMATOCRIT 42.5 % (36.0-47.0); HEMOGLOBIN 14.2 g/dL (12.0-15.5); MEAN CORPUSCULAR HEMOGLOBIN 29.8 pg (27.0-33.4); MEAN CORPUSCULAR HGB CONC 33.4 g/dL (32.0-36.0); MEAN CORPUSCULAR VOLUME 89 fl (80-97); PLATELET COUNT 251 10^3/uL (150-450); RED BLOOD COUNT 4.75 10^6/uL (3.72-5.28); RED CELL DISTRIBUTION WIDTH 13.5 % (11.5-14.0); WHITE BLOOD COUNT 7.3 10^3/uL (4.0-10.5)
[2018-01-12] MEDS ORDERED: MIDAZOLAM 2 MG/2 ML INJ ONE (07:12)
[2018-01-12] MEDS ORDERED: EPHEDRINE SULFATE INJ 50 MG/1 ML AMPULE ONE (07:12)
[2018-01-12] MEDS ORDERED: FENTANYL CITRATE INJ/PF 250 MCG/5 ML AMPULE ONE (07:12)
[2018-01-12] MEDS ORDERED: PROPOFOL INJ 200 MG/20 ML VIAL IV ONE (07:13)
[2018-01-12] MEDS ORDERED: HYDROMORPHONE HCL INJ/PF 2 MG/ML AMPULE ONE (07:13)
[2018-01-12] MEDS ORDERED: ACETAMINOPHEN 100 ML IV ONE (07:13)
[2018-01-12] MEDS ORDERED: DIPHENHYDRAMINE HCL 50 MG/ML VIAL IV PRN (08:00)
[2018-01-12] MEDS ORDERED: MORPHINE SULFATE 10 MG/ML INJ IV PRN (08:00)
[2018-01-12] MEDS ORDERED: OXYCODONE-ACETAMINOPHEN 5-325 MG TABLET PO PRN ×2 (08:00)
[2018-01-12] MEDS ORDERED: FENTANYL CITRATE INJ/PF 100 MCG/2 ML AMPUL IV PRN ×3 (08:00)
[2018-01-12] MEDS ORDERED: PROMETHAZINE HCL INJ 25 MG/1 ML VIAL IV PRN ×2 (08:00)
[2018-01-12] MEDS ORDERED: MEPERIDINE HCL/PF INJ 25 MG/1 ML DISP.SYRIN IV PRN (08:00)
[2018-01-12] MEDS ORDERED: METHYLENE BLUE 50 MG/10 ML AMPULE ONE (08:25)
[2018-01-12] MEDS: FENTANYL CITRATE INJ/PF 100 MCG/2 ML AMPUL ONE ×2 (08:47→08:52)
--- NOTE | 2018-01-12 08:47 | Operative Report ---
Operative Report DATE OF SURGERY: 01/12/18 PREOPERATIVE DIAGNOSIS: Pelvic pain and left hydrosalpinx POSTOPERATIVE DIAGNOSIS: Pelvic adhesions left hydrosalpinx right fallopian tube appears slightly clubbed but is patent OPERATION: Diagnostic laparoscopy lysis of adhesions over both ovaries and removal of left fallopian tube SURGEON: MAYNOR MCCABE ANESTHESIA: GA TISSUE REMOVED OR ALTERED: Left fallopian tube and lysis of adhesions COMPLICATIONS: None ESTIMATED BLOOD LOSS: 10 cc INTRAOPERATIVE FINDINGS: Pelvic adhesions pulling both ovaries behind the uterus left hydrosalpinx small corpus luteum cyst on the right ovary. The right fallopian tube appears slightly clubbed however is patent to injection of methylene blue. PROCEDURE: The patient was taken to the operating room. She was placed in supine position. General anesthesia was induced and she was placed in the dorsolithotomy position using Duran stirrups. Her abdomen perineum and vagina were prepared and draped in sterile fashion. Her bladder was drained with red rubber catheter. The cervix was gently dilated allowing a uterine manipulator to be placed in the balloon inflated. An incision was made at the umbilicus and the natural umbilical defect was identified and dilated. This allowed a blunt port to be placed. Laparoscopy confirmed appropriate placement in the abdomen was insufflated with CO2 gas. Suprapubic incision was made 2 cm above the symphysis and a port was placed laparoscopically without difficulty. Using a blunt probe the pelvis was inspected. The findings have been mentioned above. A left lateral port was placed lateral to the inferior epigastric vessels. Also under laparoscopic visualization. Using a grasper and LigaSure device the adhesions restraining the ovaries were removed. All these adhesions were filmy and not vascular. They were however tenting the ovaries up under the uterus and to the sidewall. Once the ovaries were freed up attention was directed to the fallopian tubes. The left tube was clubbed and dilated at its distal end. Using the LigaSure device the mesosalpinx was cauterized and cut removed and the fallopian tube was removed through the left lateral port and sent for specimen. The right fallopian tube was inspected and appeared to be somewhat clubbed at its distal end but not nearly to the degree of the left fallopian tube. Methylene blue was injected through the uterine manipulator and it freely spilled through the right fallopian tube. All the pedicles were inspected for bleeding and hemostasis was assured. The laparoscopic ports were removed under visualization and the gas was allowed to escape from the abdomen. The umbilical port and scope were removed at the same time. The fascia at the umbilicus was closed with 2-0 Vicryl stitch in the skin at all 3 sites closed with a 4-0 undyed Vicryl stitch. The uterine manipulator was removed at the end of the case. Patient was placed back in supine position taken recovery in stable condition.
[2018-01-12] MEDS ORDERED: KETOROLAC TROMETHAMINE 60 MG/2 ML SDV ONE (13:36)
[2018-01-12] MEDS ORDERED: ONDANSETRON HCL INJ/PF 4 MG/2 ML SDV ONE (13:36)
[2018-01-12] MEDS ORDERED: ROCURONIUM BROMIDE INJ 50 MG/5 ML VIAL IV ONE (13:36)
[2018-01-12] MEDS ORDERED: NEOSTIGMINE METHYLSULFATE 10 MG/10 ML VIAL ONE (13:36)
[2018-01-12] MEDS ORDERED: DEXAMETHASONE SOD PHOSPHATE INJ 4 MG/1 ML VIAL ONE (13:36)
[2018-01-12] MEDS ORDERED: GLYCOPYRROLATE INJ 0.4 MG/2 ML VIAL ONE (13:36)
[2018-01-12 13:39] VITALS: BP 137/86
== END 2018-01-12 10:30 | disposition home or self-care (01) ==
LOC: OROUT 05:18
PROVIDERS: ATTEND Obstetrics & Gynecology
DX: N70.11 Chronic salpingitis (principal); R10.2 Pelvic and perineal pain; N83.11 Corpus luteum cyst of right ovary; N73.6 Female pelvic peritoneal adhesions (postinfective); Z01.818 Encounter for other preprocedural examination; Z87.891 Personal history of nicotine dependence
CPT/HCPCS: 36415; 85027; 81025; 88305 ×2; 58661; J2250; J3490; J1100; J1885; J3010 ×2; J1170; J2405; J2704; J0131; Q9968; 840

== ENCOUNTER 2018-06-17 17:44 | Emergency (ER) | payer BC ==
[2018-06-17] MEDS ORDERED: MORPHINE SULFATE 10 MG/ML INJ IV ONE (18:07)
[2018-06-17] MEDS ORDERED: ONDANSETRON HCL INJ/PF 4 MG/2 ML SDV IV ONE (18:07)
[2018-06-17] MEDS ORDERED: RINGERS SOLUTION,LACTATED 1,000 ML IV ONE (18:07)
--- NOTE | 2018-06-17 18:09 | ER Document Report ---
ED Medical Screen (RME) - General Chief Complaint: Abdominal Pain Stated Complaint: ABDOMINAL PAIN Time Seen by Provider: 06/17/18 18:07 Notes: Patient is a 28-year-old female that presents to the emergency department for chief complaint of right lower quadrant abdominal pain. Patient recently had CT imaging performed at an outside emergency department, that was concerning for possible ovarian cyst, had ultrasound performed as an outpatient at the [facility]/ [facility] yesterday, that was negative for concern for this, pain ongoing patient presented back to the ER for this.. ROS: Unless otherwise stated in this report the patient's positive and negative responses for review of systems for constitutional, eyes, ENT, cardiovascular, respiratory, gastrointestinal, neurological, genitourinary, musculoskeletal, and integumentary systems and related systems to the presenting problem are either as stated in the HPI or were not pertinent or were negative for the symptoms and/or complaints related to the presenting medical problem. PHYSICAL EXAMINATION: Vital signs reviewed. GENERAL: Well-appearing, well-nourished and appears uncomfortable HEAD: Atraumatic, normocephalic. EYES: Pupils equal round extraocular movements intact, conjunctiva are normal. ENT: Nares patent NECK: Normal range of motion CV: Heart regular rate and rhythm LUNGS: No respiratory distress Musculoskeletal: Normal range of motion NEUROLOGICAL: Normal speech PSYCH: Normal mood, normal affect. MDM: Patient seen and examined for rapid initial assessment. Vital signs reviewed. A comprehensive ED assessment and evaluation of the patient, analysis of test results and completion of the medical decision making process will be conducted by additional ED providers. *Note is created using voice recognition software and may contain spelling, syntax or grammatical errors. TRAVEL OUTSIDE OF THE [place] 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 Musculoskeltal Medical History: Denies Hx Arthritis Psychiatric Medical History: Reports: Hx Depression Past Surgical History: Reports: Hx Gynecologic Surgery - fallopian tube removal - Immunizations Hx Diphtheria, Pertussis, Tetanus Vaccination: Yes History of Influenza Vaccine for 05/2017 - 10/2017 Season: No Physical Exam - Vital signs Vitals: Temp Pulse Resp BP Pulse Ox 98.8 F 88 19 123/64 98 06/17/18 17:47 06/17/18 17:47 06/17/18 17:47 06/17/18 17:47 06/17/18 17:47 Course - Vital Signs Vital signs: Temp Pulse Resp BP Pulse Ox 98.8 F 88 19 123/64 98 06/17/18 17:47 06/17/18 17:47 06/17/18 17:47 06/17/18 17:47 06/17/18 17:47 Doctor's Discharge - Discharge Referrals: MALCOM REYNOSO PA-C [Primary Care Provider] - Follow up as needed
[2018-06-17 18:55] LABS: APPEARANCE,URINE SLIGHTLY-CLOUDY; BILIRUBIN,URINE NEGATIVE (NEGATIVE); COLOR,URINE YELLOW; GLUCOSE, URINE NEGATIVE (NEGATIVE); KETONES,URINE NEGATIVE (NEGATIVE); LEUKOCYTE ESTERASE,URINE NEGATIVE (NEGATIVE); NITRITE,URINE NEGATIVE (NEGATIVE); PROTEIN,URINE NEGATIVE (NEGATIVE); URINE SPECIFIC GRAVITY 1.014; UROBILINOGEN,URINE NEGATIVE mg/dL (<2.0)
[2018-06-17 19:06] LABS: ABSOLUTE BASOPHILS # (AUTO) 0.1 10^3/uL (0.0-0.2); ABSOLUTE EOSINOPHILS # (AUTO) 0.5 10^3/uL (0.0-0.6); ABSOLUTE LYMPHOCYTES (AUTO) 2.1 10^3/uL (0.5-4.7); ABSOLUTE NEUT (AUTO) 7.6 10^3/uL (1.7-8.2); BASOPHILS % (AUTO) 0.5 % (0-2); EOSINOPHILS % (AUTO) 4.5 % (0-6); HEMATOCRIT 39.9 % (36.0-47.0); HEMOGLOBIN 13.6 g/dL (12.0-15.5); LYMPHOCYTES % (AUTO) 18.3 % (13-45); MEAN CORPUSCULAR HGB CONC 34.1 g/dL (32.0-36.0); MEAN CORPUSCULAR VOLUME 91 fl (80-97); MONOCYTES % (AUTO) 9.2 % (3-13); PLATELET COUNT 265 10^3/uL (150-450); RED BLOOD COUNT 4.39 10^6/uL (3.72-5.28); RED CELL DISTRIBUTION WIDTH 13.4 % (11.5-14.0); SEGMENTED NEUTROPHILS % (AUTO) 67.5 % (42-78); TOTAL CELLS COUNTED % (AUTO) 100 %; WHITE BLOOD COUNT 11.3 10^3/uL (4.0-10.5)
[2018-06-17] MEDS ORDERED: HYOSCYAMINE SULFATE 0.125 MG TABLET PO ONE (19:07)
[2018-06-17] MEDS ORDERED: KETOROLAC TROMETHAMINE INJ/PF 30 MG/1 ML SDV IV ONE (19:07)
--- NOTE | 2018-06-17 19:07 | ER Document Report ---
ED General - General Chief Complaint: Abdominal Pain Stated Complaint: ABDOMINAL PAIN Time Seen by Provider: 06/17/18 18:07 Notes: Patient is a 28-year-old female with a past medical history of prior pancreatitis, prior colitis, left-sided salpingectomy who presents with 3 days of right lower and right adnexal abdominal pain that has now also involve the right upper quadrant. The patient was seen at [facility] emergency department on , had a CT scan of her abdomen and pelvis which apparently it was benign without any acute findings. Patient saw her SOFTWARE SOLUTIONS ARCHITECT yesterday, had a transvaginal ultrasound that did not show any evidence of involvement of her right ovary. She was diagnosed with colitis, started on doxycycline and metronidazole for a diagnosis of possible pelvic inflammatory disease. She states despite this treatment she has not had any improvement. She does describe the pain as a severe, aching, stabbing pain to the lower abdomen. Nothing improves or worsens the pain. She has had nausea but no vomiting. No diarrhea. No vaginal bleeding or discharge. No dysuria. Patient does have a history of multiple bouts of abdominal pain in the past of uncertain etiology. Of note she has had 5 CT scans of her abdomen and pelvis at this emergency department since 2014 and admits to having several outside of this hospital. TRAVEL OUTSIDE OF THE [place] IN LAST 30 DAYS: No - Related Data Allergies/Adverse Reactions: No Known Allergies Allergy (Verified 06/17/18 17:45) Past Medical History - General Information source: Patient - Social History Smoking Status: Current Every Day Smoker Frequency of alcohol use: None Drug Abuse: None Lives with: Spouse/Significant other Family History: Reviewed & Not Pertinent Patient has suicidal ideation: No Patient has homicidal ideation: No - Past Medical History Cardiac Medical History: Denies: Hx Coronary Artery Disease, Hx Heart Attack, Hx Hypertension Pulmonary Medical History: Denies: Hx Asthma, Hx Bronchitis, Hx COPD, Hx Pneumonia Neurological Medical History: Denies: Hx Cerebrovascular Accident, Hx Seizures Renal/ Medical History: Denies: Hx Peritoneal Dialysis GI Medical History: 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 HENT: Negative for sore throat. Eyes: Negative for visual changes. Cardiovascular: Negative for chest pain. Respiratory: Negative for shortness of breath. Gastrointestinal: Positive for abdominal pain and nausea Genitourinary: Negative for dysuria. Musculoskeletal: Negative for back pain. Skin: Negative for rash. Neurological: Negative for headaches, weakness or numbness. 10 point ROS negative except as marked above and in HPI. Physical Exam - Vital signs Vitals: Temp Pulse Resp BP Pulse Ox 98.8 F 88 19 123/64 98 06/17/18 17:47 06/17/18 17:47 06/17/18 17:47 06/17/18 17:47 06/17/18 17:47 Interpretation: Normal Notes: PHYSICAL EXAMINATION: GENERAL: Well-appearing, well-nourished and in no acute distress. HEAD: Atraumatic, normocephalic. EYES: Pupils equal round and reactive to light, extraocular movements intact, sclera anicteric, conjunctiva are normal. ENT: nares patent, oropharynx clear without exudates. Moist mucous membranes. NECK: Normal range of motion, supple without lymphadenopathy LUNGS: Breath sounds clear to auscultation bilaterally and equal. No wheezes rales or rhonchi. HEART: Regular rate and rhythm without murmurs ABDOMEN: Soft, mild tenderness on palpation of the right adnexa and right lower quadrant as well as the right upper quadrant otherwise no localized tenderness, normoactive bowel sounds. No guarding, no rebound. No masses appreciated. EXTREMITIES: Normal range of motion, no pitting or edema. No cyanosis. NEUROLOGICAL: No focal neurological deficits. Moves all extremities spontaneously and on command. PSYCH: Normal mood, normal affect. SKIN: Warm, Dry, normal turgor, no rashes or lesions noted. Course - Re-evaluation Re-evalutation: 06/17/18 19:10 Presentation of 3 days of ongoing right lower and now right upper abdominal pain in an otherwise well-appearing 28-year-old female. The differential diagnosis is somewhat narrowed as the patient has already had an extensive workup for this abdominal pain by 2 prior providers prior to visiting me today. She has had a CT scan of her abdomen and pelvis 2 days ago which did not demonstrate any evidence of acute appendicitis, was diagnosed with ruptured ovarian cyst at this time however her SOFTWARE SOLUTIONS ARCHITECT who saw her yesterday states that this diagnosis was likely inaccurate based on a transvaginal ultrasound which did not show any evidence of the same. She has been started on empiric treatment for pelvic inflammatory disease given her lower abdominal pain but has not yet had improvement although she has only had 2 rounds of treatment. Abdominal exam does show ongoing right lower as well as right adnexal abdominal pain as well as right upper quadrant abdominal pain. Will obtain a right upper quadrant ultrasound as the patient states that her right upper quadrant abdominal pain started after eating today and biliary pathology is on the differential although this should not be causing lower abdominal pain. Same is true for pancreatitis or hepatitis. And ovarian torsion seems quite unlikely given the duration of the patient's symptoms as well as that she is ready had a normal transvaginal ultrasound. Appendicitis that could have been missed on the initial CT scan or if the appendix was not visualized is also a consideration although again seems somewhat unlikely given the patient's abdominal exam. I have had a lengthy conversation with the patient and her about the quantity of CT images that she has had performed totaling at least 6 CT scans in the past 4 years of her abdomen and pelvis. At this point we have agreed to proceed with labs, pain control, right upper quadrant ultrasound, and then perform a repeat abdominal exam before proceeding with any further radiographic imaging. 06/17/18 21:18 Patient on repeat abdominal exam has a overall much improved abdominal exam. There is no significant focal tenderness in any location at this point. Her labs are noted to be broadly unremarkable without a leukocytosis, lipase elevation, transaminitis. Right upper quadrant ultrasound without gallbladder wall thickening, stones or evidence of cholecystitis. Trace pericolic cystic fluid is noted which seems to be an incidental finding. I have had a risks and benefits conversation with the patient regarding CT imaging of the abdomen and pelvis at this time. We discussed, based on today's exam and labs there is a possibility that they could have a diagnosis that could be better clarified by CT and that this could possibly change lead. We discussed the risks of radiation to the abdomen and pelvis. We discussed the alternative of close follow-up with their primary care physician for a recheck of the abdomen within 24 hours as well as reasons to return to the emergency department. After this conversation, the patient has elected to avoid CT imaging of the abdomen and pelvis at this time. They have capacity. They have verbalized the importance of close follow-up as well as reasons to return to the emergency department including worsening abdominal pain, fever, persistent vomiting, or any other symptoms that are worrisome to them. - Vital Signs Vital signs: Temp Pulse Resp BP Pulse Ox 98.8 F 88 19 123/64 98 06/17/18 17:47 06/17/18 17:47 06/17/18 17:47 06/17/18 17:47 06/17/18 17:47 - Laboratory Result Diagrams: 06/17/18 18:52 06/17/18 18:52 Laboratory results interpreted by me: 06/17/18 06/17/18 18:52 18:52 WBC 11.3 H AST 74 H - Diagnostic Test Radiology reviewed: Reports reviewed Discharge - Discharge Clinical Impression: Right lower quadrant abdominal pain, Right upper quadrant abdominal pain Condition: Good Disposition: HOME, SELF-CARE Additional Instructions: You have been seen in the Emergency Department (ED) for abdominal pain. Your evaluation did not identify a clear cause of your symptoms but was generally reassuring. For your pain: Take ibuprofen 600 mg and acetaminophen 1000 mg every 6 hours together as needed for pain. You may also take Levsin twice daily as needed for pain not controlled by Tylenol and ibuprofen. You may also use topical lidocaine you can purchase [id number] for your pain. Please continue to take antibiotics and other medications as prescribed by the SOFTWARE SOLUTIONS ARCHITECT for treatment of a possible colitis or pelvic inflammatory disease. Return to the ED if your abdominal pain worsens or fails to improve, you develop bloody vomiting, bloody diarrhea, you are unable to tolerate fluids due to vomiting, fever greater than 101, or other symptoms that concern you. Prescriptions: Hyoscyamine Sulfate [Levsin-Sl] 0.125 mg SL Q12HP PRN #30 tab.subl PRN Reason: Referrals: MALCOM REYNOSO PA-C [Primary Care Provider] - Follow up tomorrow
[2018-06-17 19:25] LABS: ALANINE AMINOTRANSFERASE 31 U/L (9-52); ALBUMIN 4.3 g/dL (3.5-5.0); ALKALINE PHOSPHATASE 40 U/L (38-126); ANION GAP 14 (5-19); ASPARTATE AMINO TRANSFERASE 74 U/L (14-36); BILIRUBIN,DIRECT 0.2 mg/dL (0.0-0.4); BILIRUBIN,TOTAL 0.3 mg/dL (0.2-1.3); BLOOD UREA NITROGEN 15 mg/dL (7-20); CALCIUM 9.8 mg/dL (8.4-10.2); CARBON DIOXIDE 25 mmol/L (22-30); CHLORIDE 106 mmol/L (98-107); GLUCOSE 75 mg/dL (75-110); LIPASE 205.1 U/L (23-300); POTASSIUM 4.2 mmol/L (3.6-5.0); SODIUM 144.8 mmol/L (137-145); TOTAL PROTEIN 7.4 g/dL (6.3-8.2)
[2018-06-17] MEDS ORDERED: HYOSCYAMINE SULFATE 0.125 MG TABLET ONE (19:50)
--- NOTE | 2018-06-17 21:03 | RADIOLOGY REPORT (SQ) ---
EXAM DESCRIPTION: U/S ABDOMEN LIMITED W/O DOP COMPLETED DATE/TIME: 06/17/2018 8:51 pm REASON FOR STUDY: ruq pain COMPARISON: CT abdomen and pelvis 01/07/2018. TECHNIQUE: Grayscale images acquired of the right upper quadrant and recorded on PACS. Additional se lected color Doppler and spectral images recorded. LIMITATIONS: Study limited due to acoustical interference from fat or from air in the bowel. FINDINGS: PANCREAS: Partially obscured by overlying bowel gas. The visualized pancreas in the midli ne is unremarkable. LIVER: Measures 15.6 cm. Echotexture normal. LIVER VASCULATURE: Normal directional flow of the main portal vein. GALLBLADDER: No stones. Normal wall thickness. Trace amount of pericholecystic fluid was noted. ULTRASOUND-DETECTED PIEDRA'S SIGN: Negative. INTRAHEPATIC DUCTS AND COMMON DUCT: CBD and intrahepatic ducts normal caliber. INFERIOR VENA CAVA: Patent. AORTA: No aneurysm at the visualized segments. RIGHT KIDNEY: Measures 10.1 cm in length. No hydronephrosis. PERITONEAL CAVITY AND RIGHT PLEURAL SPACE: No ascites or effusion. IMPRESSION: Trace amount of pericholecystic fluid. No cholelithiasis or biliary ductal dilation. TECHNICAL DOCUMENTATION: JOB ID: [id number] [employer]- All Rights Reserved Reading location - IP/workstation name: [email or web address]
[2018-06-17] MEDS ORDERED: IBUPROFEN 600 MG TABLET PO ONE (21:16)
[2018-06-17] MEDS ORDERED: LIDOCAINE 5% (700 MG) TRANSDERMAL ADH..PATCH TP ONE (21:16)
[2018-06-17] MEDS ORDERED: ACETAMINOPHEN 325 MG TABLET PO ONE (21:16)
[2018-06-17 21:32] VITALS: BP 124/78
== END 2018-06-17 21:33 | disposition home or self-care (01) ==
LOC: ER 17:44
DX: K52.9 Noninfective gastroenteritis and colitis, unspecified (principal); R10.32 Left lower quadrant pain; R10.12 Left upper quadrant pain; R10.2 Pelvic and perineal pain; R11.0 Nausea; F17.200 Nicotine dependence, unspecified, uncomplicated; Z87.19 Personal history of other diseases of the digestive system; Z90.79 Acquired absence of other genital organ(s); Z87.11 Personal history of peptic ulcer disease
CPT/HCPCS: 99284; 96361; 96374; 96375; 36415; 83605; 83690; 85025; 81025; 80053; 81001; 76705; J3490; J1885; J2270; J2405; J7120

== ENCOUNTER 2018-08-29 14:07 | Emergency (ER) | payer BC ==
[2018-08-29] MEDS ORDERED: DICYCLOMINE HCL INJ 20 MG/2 ML AMPULE IM ONE (14:35)
[2018-08-29] MEDS ORDERED: METOCLOPRAMIDE HCL INJ/PF 10 MG/2 ML SDV IM ONE (14:35)
--- NOTE | 2018-08-29 14:36 | ER Document Report ---
ED Medical Screen (RME) - General Chief Complaint: Abdominal Pain Stated Complaint: ABDOMINAL PAIN Time Seen by Provider: 08/29/18 14:31 Notes: RAPID MEDICAL EVALUATION DISCLOSURE I have seen this patient as part of a Rapid Medical Evaluation and, if applicable, placed any initially appropriate orders. The patient will be seen and fully evaluated, including a full history and physical exam, by a provider (in Main ED or Fast Track) when a room becomes available. 28-year-old female here with complaints of left upper quadrant abdominal pain nausea vomiting that has been ongoing episodically for the past 2 years but started back up again recently. She has not taken anything for the pain because "I never take anything for the pain". She was supposed to see her gastroe nterologist today but the pain became unbearable so they came here. No fevers chills diarrhea urinary symptoms. Of note, they report that she has had many CT scans over the past 2 years and they were told that she probably should not have many more. TRAVEL OUTSIDE OF THE [place] 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 Musculoskeltal Medical History: Denies Hx Arthritis Psychiatric Medical History: Reports: Hx Depression Past Surgical History: Reports: Hx Gynecologic Surgery - fallopian tube removal - Immunizations Hx Diphtheria, Pertussis, Tetanus Vaccination: Yes History of Influenza Vaccine for 05/2017 - 10/2017 Season: No Physical Exam - Vital signs Vitals: Temp Pulse Resp BP Pulse Ox 98.5 F 106 H 20 133/96 H 99 08/29/18 14:24 08/29/18 14:24 08/29/18 14:24 08/29/18 14:24 08/29/18 14:24 Course - Vital Signs Vital signs: Temp Pulse Resp BP Pulse Ox 98.5 F 106 H 20 133/96 H 99 08/29/18 14:24 08/29/18 14:24 08/29/18 14:24 08/29/18 14:24 08/29/18 14:24 Doctor's Discharge - Discharge Referrals: MALCOM REYNOSO PA-C [Primary Care Provider] - Follow up as needed
[2018-08-29 15:22] LABS: ABSOLUTE EOSINOPHILS # (AUTO) 0.7 10^3/uL (0.0-0.6); ABSOLUTE MONOCYTES (AUTO) 0.6 10^3/uL (0.1-1.4); ABSOLUTE NEUT (AUTO) 5.4 10^3/uL (1.7-8.2); BASOPHILS % (AUTO) 0.4 % (0-2); EOSINOPHILS % (AUTO) 7.6 % (0-6); HEMATOCRIT 42.2 % (36.0-47.0); HEMOGLOBIN 14.7 g/dL (12.0-15.5); MEAN CORPUSCULAR HEMOGLOBIN 31.9 pg (27.0-33.4); MEAN CORPUSCULAR HGB CONC 34.8 g/dL (32.0-36.0); MEAN CORPUSCULAR VOLUME 92 fl (80-97); MONOCYTES % (AUTO) 7.4 % (3-13); PLATELET COUNT 331 10^3/uL (150-450); RED CELL DISTRIBUTION WIDTH 13.4 % (11.5-14.0); SEGMENTED NEUTROPHILS % (AUTO) 61.6 % (42-78); TOTAL CELLS COUNTED % (AUTO) 100 %; WHITE BLOOD COUNT 8.7 10^3/uL (4.0-10.5)
[2018-08-29 15:28] LABS: APPEARANCE,URINE CLEAR; BILIRUBIN,URINE NEGATIVE (NEGATIVE); COLOR,URINE COLORLESS; GLUCOSE, URINE NEGATIVE (NEGATIVE); KETONES,URINE NEGATIVE (NEGATIVE); LEUKOCYTE ESTERASE,URINE NEGATIVE (NEGATIVE); NITRITE,URINE NEGATIVE (NEGATIVE); PROTEIN,URINE NEGATIVE (NEGATIVE); URINE SPECIFIC GRAVITY 1.002; UROBILINOGEN,URINE NEGATIVE mg/dL (<2.0)
[2018-08-29] MEDS ORDERED: MORPHINE SULFATE 10 MG/ML INJ IM ONE (15:29)
--- NOTE | 2018-08-29 15:36 | ER Document Report ---
ED General - General Chief Complaint: Abdominal Pain Stated Complaint: ABDOMINAL PAIN Time Seen by Provider: 08/29/18 14:31 Mode of Arrival: Ambulatory Information source: Patient TRAVEL OUTSIDE OF THE [place] IN LAST 30 DAYS: No - HPI Patient complains to provider of: abdominal pain Onset: Other - 28 yo female that presents with abdominal pain in line with previous episodes of abdominal pain which she has suffered from for years but was scheduled to see her labor economics teacher today and decided to come the emergency room because the pain was too much. Denies fevers or chills denies any other symptoms. - Related Data Allergies/Adverse Reactions: No Known Allergies Allergy (Verified 08/29/18 14:07) Past Medical History - General Information source: Patient - Social History Smoking Status: Current Every Day Smoker Chew tobacco use (# tins/day): No Frequency of alcohol use: None Drug Abuse: None Family History: Reviewed & Not Pertinent Patient has suicidal ideation: No Patient has homicidal ideation: No - Past Medical History Cardiac Medical History: Denies: Hx Coronary Artery Disease, Hx Heart Attack, Hx Hypertension Pulmonary Medical History: Denies: Hx Asthma, Hx Bronchitis, Hx COPD, Hx Pneumonia Neurological Medical History: Denies: Hx Cerebrovascular Accident, Hx Seizures Renal/ Medical History: Denies: Hx Peritoneal Dialysis GI Medical History: 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 Musculoskeletal Medical History: Denies Hx Arthritis Psychiatric Medical History: Reports: Hx Depression Past Surgical History: Reports: Hx Gynecologic Surgery - fallopian tube removal - Immunizations Hx Diphtheria, Pertussis, Tetanus Vaccination: Yes Review of Systems - Review of Systems -: Yes All other systems reviewed and negative Physical Exam - Vital signs Vitals: Temp Pulse Resp BP Pulse Ox 98.5 F 106 H 20 133/96 H 99 08/29/18 14:24 08/29/18 14:24 08/29/18 14:24 08/29/18 14:24 08/29/18 14:24 Interpretation: Normal - General General appearance: Appears well, Alert - HEENT Head: Normocephalic, Atraumatic Eyes: Normal Pupils: PERRL - Respiratory Respiratory status: No respiratory distress Chest status: Nontender Breath sounds: Normal Chest palpation: Normal - Cardiovascular Rhythm: Regular Heart sounds: Normal auscultation Murmur: No - Abdominal Inspection: Normal Distension: No distension Bowel sounds: Normal Tenderness: Tender - tenderness in the LUQ Organomegaly: No organomegaly - Back Back: Normal, Nontender - Extremities General upper extremity: Normal inspection, Nontender, Normal color, Normal ROM, Normal temperature General lower extremity: Normal inspection, Nontender, Normal color, Normal ROM, Normal temperature, Normal weight bearing. No: Jacquelin's sign - Neurological Neuro grossly intact: Yes Cognition: Normal Orientation: AAOx4 [place] Coma Scale Eye Opening: Spontaneous [place] Coma Scale Verbal: Oriented [place] Coma Scale Motor: Obeys Commands [place] Coma Scale Total: 15 Speech: Normal Motor strength normal: LUE, RUE, LLE, RLE Sensory: Normal - Psychological Associated symptoms: Normal affect, Normal mood - Skin Skin Temperature: Warm Skin Moisture: Dry Skin Color: Normal Course - Re-evaluation Re-evalutation: 08/29/18 17:33 28-year-old female with chronic abdominal pain who is scheduled to see a labor economics teacher today he was taken to the emergency room because her abdominal pain was too much. On examination here she is got a reassuring abdominal examination. Her labs are normal. Contacted Dr. De Leon who notes that this patient can undergo endoscopy this week. She will contact Dr. Cobb. He will attempt to perform an endoscopy either Tuesday or Tuesday. She will be given sucralfate as well as omeprazole to try and soothe what is probably a ulcer. - Vital Signs Vital signs: Temp Pulse Resp BP Pulse Ox 98.5 F 106 H 20 133/96 H 99 08/29/18 14:24 08/29/18 14:24 08/29/18 14:24 08/29/18 14:24 08/29/18 14:24 - Laboratory Result Diagrams: 08/29/18 14:50 08/29/18 14:50 Laboratory results interpreted by me: 08/29/18 14:50 Eosinophils % 7.6 H Absolute Eosinophils 0.7 H Discharge - Discharge Clinical Impression: Ulcer Abdominal pain Qualifiers: Abdominal location: unspecified location Qualified Code(s): R10.9 - Unspecified abdominal pain Condition: Good Disposition: HOME, SELF-CARE Instructions: Abdominal Pain ([facility]) Additional Instructions: You were seen today in the emergency department for your abdominal pain. You had evaluation including a physical exam. You had blood work as well. Dr. De Leon suggest you call his office today. He hopes that you can schedule an endoscopy on Tuesday or Tuesday. Return to the emergency room if you have worsening fevers or chills if you start having blood in your stools or cannot swallow anything. Prescriptions: Esomeprazole Magnesium 40 mg PO DAILY #20 capsule. Hydrocodone Bit/Acetaminophen [Hydrocodon-Acetaminophen 5-325] 1 each PO Q12 PRN #6 tablet PRN Reason: Sucralfate [Carafate 1 gm Tablet] 1 gm PO TID #120 tablet Referrals: MALCOM REYNOSO PA-C [Primary Care Provider] - Follow up as needed
[2018-08-29 15:47] LABS: ALANINE AMINOTRANSFERASE 15 U/L (9-52); ALKALINE PHOSPHATASE 40 U/L (38-126); ANION GAP 10 (5-19); ASPARTATE AMINO TRANSFERASE 19 U/L (14-36); BILIRUBIN,DIRECT 0.1 mg/dL (0.0-0.4); BILIRUBIN,TOTAL 0.3 mg/dL (0.2-1.3); BLOOD UREA NITROGEN 9 mg/dL (7-20); CALCIUM 9.9 mg/dL (8.4-10.2); CARBON DIOXIDE 27 mmol/L (22-30); CHLORIDE 104 mmol/L (98-107); GLUCOSE 85 mg/dL (75-110); LIPASE 98.2 U/L (23-300); POTASSIUM 4.5 mmol/L (3.6-5.0); SODIUM 140.9 mmol/L (137-145)
[2018-08-29 16:47] VITALS: BP 123/79
== END 2018-08-29 16:47 | disposition home or self-care (01) ==
LOC: ER 14:07
DX: K25.9 Gastric ulcer, unspecified as acute or chronic, without hemorrhage or perforation (principal); R10.9 Unspecified abdominal pain; F17.200 Nicotine dependence, unspecified, uncomplicated
CPT/HCPCS: 99284; 96372; 36415; 83690; 85025; 81025; 80053; 81001; J0500; J2765; J2270